=== PATIENT | male | born 1975 | race Caucasian/White ===

== ENCOUNTER 2016-10-04 17:46 | Emergency (ER) | payer MEDICAID ==
[~2016-10-04] VITALS: Ht 175.3 cm; Wt 59.0 kg
[~2016-10-04 17:46] MED LIST: none reported
[2016-10-04 18:39] VITALS: BP 126/99
== END 2016-10-04 23:50 | disposition left against medical advice (07) ==
LOC: ER 17:46
DX: Z53.21 Procedure and treatment not carried out due to patient leaving prior to being seen by health care provider (principal)

== ENCOUNTER 2017-06-03 08:31 | Emergency (ER) | payer MEDICAID ==
[~2017-06-03] VITALS: Ht 170.2 cm; Wt 68.0 kg
[2017-06-03] MEDS ORDERED: FAMOTIDINE 20MG/2ML VIAL IV STA (09:38)
[2017-06-03] MEDS ORDERED: METOCLOPRAMIDE HCL 10MG/2ML VIAL IV STA (09:38)
[2017-06-03] MEDS ORDERED: SODIUM CHLORIDE 0.9% 1,000 ML IV ONE (09:38)
[2017-06-03 10:07] LABS: BASOPHILS % 0.4 % (0.0-2.0); LYMPHOCYTES % 26.8 % (20.0-50.0); MEAN CORPUSCULAR HEMOGLOBIN 33.2 pg (28.0-32.0); MEAN CORPUSCULAR VOLUME 94.9 fL (80.0-94.0); MONOCYTES % 8.8 % (2.0-8.0); PLATELET 173 x1000/uL (130-400); RED BLOOD CELL COUNT 4.22 mill/uL (4.7-6.1); RED CELL DISTRIBUTION WIDTH 13.2 % (11.6-14.6)
[2017-06-03 10:12] LABS: CHLORIDE 87 mEq/L (98-107)
[2017-06-03 10:13] LABS: PROTHROMBIN TIME 10.4 sec (9.4-11.6)
[2017-06-03 11:08] LABS: CLARITY URINE CLEAR (CLEAR); COLOR URINE ORANGE (YELLOW); KETONES URINE 2+ (NEGATIVE); LEUKOCYTE ESTERASE URINE NEGATIVE (NEGATIVE); NITRITE URINE NEGATIVE (NEGATIVE); OCCULT BLOOD URINE TRACE (NEGATIVE); PH URINE 6.5 (4.5-8.0); PROTEIN URINE 1+ (NEGATIVE); SPECIFIC GRAVITY URINE 1.018 (1.005-1.030)
[2017-06-03] MEDS ORDERED: KETOROLAC 30MG/ML VIAL IV ONE (11:45)
[2017-06-03 12:39] VITALS: BP 116/80
== END 2017-06-03 12:39 | disposition home or self-care (01) ==
LOC: ER 09:23
DX: R11.2 Nausea with vomiting, unspecified (principal); F10.20 Alcohol dependence, uncomplicated; F17.200 Nicotine dependence, unspecified, uncomplicated
CPT/HCPCS: 36415; 80053; 81001; 83690; 85025; 85610; 96361; 96374; 96375; 99285; J1885; J2765; J3490; J7030; Z7610

== ENCOUNTER 2018-07-09 20:33 | Emergency (ER) | payer MEDICAID ==
[~2018-07-09] VITALS: Ht 167.6 cm; Wt 68.0 kg
[2018-07-09 22:47] VITALS: BP 132/89
== END 2018-07-09 23:47 | disposition home or self-care (01) ==
LOC: ER 22:57
DX: F10.129 Alcohol abuse with intoxication, unspecified (principal); Y90.9 Presence of alcohol in blood, level not specified; Z87.891 Personal history of nicotine dependence
CPT/HCPCS: 99281

== ENCOUNTER 2018-12-02 22:04 | Emergency (ER) | payer MEDICAID ==
[~2018-12-02] VITALS: Ht 165.1 cm; Wt 71.0 kg
[2018-12-02 22:44] VITALS: BP 113/82
[2018-12-02] MEDS ORDERED: SODIUM CHLORIDE 0.9% 1,000 ML IV ONE (23:23)
[2018-12-02] MEDS ORDERED: ONDANSETRON HCL 4MG/2ML INJ IV STA (23:23)
[2018-12-03 00:20] LABS: CLARITY URINE CLEAR (CLEAR); COLOR URINE YELLOW (YELLOW); KETONES URINE NEGATIVE (NEGATIVE); LEUKOCYTE ESTERASE URINE NEGATIVE (NEGATIVE); NITRITE URINE NEGATIVE (NEGATIVE); OCCULT BLOOD URINE NEGATIVE (NEGATIVE); PROTEIN URINE NEGATIVE (NEGATIVE); SPECIFIC GRAVITY URINE 1.005 (1.005-1.030); UROBILINOGEN URINE 0.2 E.U./dL (0.2-1.0)
[2018-12-03 00:52] LABS: BASOPHILS % 0.7 % (0.0-2.0); EOSINOPHILS % 0.1 % (0.0-5.0); HEMATOCRIT. 39.8 % (42.0-52.0); HEMOGLOBIN. 13.5 g/dL (14.0-18.0); LYMPHOCYTES % 32.7 % (20.0-50.0); MEAN CORPUSCULAR HEMOGLOBIN 33.6 pg (28.0-32.0); MEAN PLATELET VOLUME 8.6 fl (7.4-10.4); MONOCYTES % 3.4 % (2.0-8.0); NEUTROPHILS % 63.1 % (40.0-76.0); PLATELET 212 x1000/uL (130-400); RED BLOOD CELL COUNT 4.02 mill/uL (4.7-6.1); RED CELL DISTRIBUTION WIDTH 13.8 % (11.6-14.6)
[2018-12-03 00:58] LABS: CHLORIDE 109 mEq/L (98-107)
[2018-12-03 01:26] LABS: ETHANOL BLOOD 437 mg/dL
[2018-12-03] MEDS ORDERED: FOLIC ACID 1 MG, THIAMINE HCL 100 MG, MVI, ADULT NO.1 10 ML in DEXTROSE 5% WATER 1,000 ML IV ONE ×4 (02:15)
[2018-12-03] MEDS ORDERED: POTASSIUM CHLORIDE 20MEQ TABLET SR PO ONE (02:15)
[2018-12-03 09:06] LABS: *AMPHETAMINES SCREEN URINE NEGATIVE (NEGATIVE); *BARBITURATES SCREEN URINE NEGATIVE (NEGATIVE); *BENZODIAZEPINES SCREEN URINE NEGATIVE (NEGATIVE); *COCAINE SCREEN URINE NEGATIVE (NEGATIVE); CANNABINOID URINE SCREEN NEGATIVE (NEGATIVE); METHADONE URINE SCREEN NEGATIVE (NEGATIVE); OPIATES URINE SCREEN NEGATIVE (NEGATIVE); PHENCYCLIDINE URINE SCREEN NEGATIVE (NEGATIVE)
== END 2018-12-03 04:11 | disposition home or self-care (01) ==
LOC: ER 22:04
DX: R41.82 Altered mental status, unspecified (principal); F10.129 Alcohol abuse with intoxication, unspecified; Y90.9 Presence of alcohol in blood, level not specified
CPT/HCPCS: 36415; 80053; 80305; 80307; 80320; 80329; 81003; 82140; 85025; 96361; 96374; 99283; J2405; J3411; J3490; J7030; J7070; G0480

== ENCOUNTER 2018-12-08 22:39 | Emergency (ER) | payer MEDICAID ==
[~2018-12-08] VITALS: Ht 175.3 cm; Wt 77.0 kg
[2018-12-09 00:02] LABS: BASOPHILS % 0.2 % (0.0-2.0); EOSINOPHILS % 0.1 % (0.0-5.0); HEMATOCRIT. 38.2 % (42.0-52.0); HEMOGLOBIN. 13.2 g/dL (14.0-18.0); LYMPHOCYTES % 14.2 % (20.0-50.0); MEAN CORPUSCULAR HEMOGLOBIN 33.9 pg (28.0-32.0); MEAN CORPUSCULAR VOLUME 97.9 fL (80.0-94.0); MEAN PLATELET VOLUME 9.7 fl (7.4-10.4); MONOCYTES % 8.1 % (2.0-8.0); NEUTROPHILS % 77.4 % (40.0-76.0); PLATELET 148 x1000/uL (130-400); RED CELL DISTRIBUTION WIDTH 13.6 % (11.6-14.6)
[2018-12-09 00:03] LABS: CHLORIDE 96 mEq/L (98-107)
[2018-12-09 00:07] LABS: ETHANOL BLOOD < 10 mg/dL
[2018-12-09 00:49] LABS: *AMPHETAMINES SCREEN URINE NEGATIVE (NEGATIVE); *BARBITURATES SCREEN URINE NEGATIVE (NEGATIVE); CANNABINOID URINE SCREEN NEGATIVE (NEGATIVE)
[2018-12-09 00:50] LABS: *BENZODIAZEPINES SCREEN URINE NEGATIVE (NEGATIVE); *COCAINE SCREEN URINE NEGATIVE (NEGATIVE); METHADONE URINE SCREEN NEGATIVE (NEGATIVE); OPIATES URINE SCREEN NEGATIVE (NEGATIVE)
[2018-12-09 00:51] LABS: PHENCYCLIDINE URINE SCREEN NEGATIVE (NEGATIVE)
[2018-12-09 01:44] VITALS: BP 116/83
== END 2018-12-09 01:46 | disposition home or self-care (01) ==
LOC: ER 22:39
DX: E11.649 Type 2 diabetes mellitus with hypoglycemia without coma (principal)
CPT/HCPCS: 36415; 80305; 80320; 82962; 83880; 84484; 93005; 99284; G0480

== ENCOUNTER 2019-02-20 08:51 | Inpatient (IN) | payer MEDICAID, OTHER ==
[~2019-02-20] VITALS: Ht 175.3 cm; Wt 72.6 kg
[2019-02-20] MEDS ORDERED: FOLIC ACID 1 MG, THIAMINE HCL 100 MG, MVI, ADULT NO.1 10 ML in DEXTROSE 5% WATER 1,000 ML IV ONE ×4 (09:15)
[2019-02-20 09:22] LABS: EOSINOPHILS % 1.6 % (0.0-5.0); HEMATOCRIT. 32.3 % (42.0-52.0); LYMPHOCYTES % 34.9 % (20.0-50.0); MEAN CORPUSCULAR HEMOGLOBIN 34.3 pg (28.0-32.0); MEAN CORPUSCULAR VOLUME 100.6 fL (80.0-94.0); MEAN PLATELET VOLUME 9.6 fl (7.4-10.4); MONOCYTES % 7.7 % (2.0-8.0); NEUTROPHILS % 54.8 % (40.0-76.0); PLATELET 119 x1000/uL (130-400); RED BLOOD CELL COUNT 3.21 mill/uL (4.7-6.1); RED CELL DISTRIBUTION WIDTH 13.9 % (11.6-14.6)
[2019-02-20 09:27] LABS: CHLORIDE 106 mEq/L (98-107)
[2019-02-20 09:28] LABS: INR 1.1; PROTHROMBIN TIME 10.8 sec (9.6-11.0)
[2019-02-20 09:33] LABS: ETHANOL BLOOD < 10 mg/dL
[2019-02-20 09:37] LABS: CREATINE KINASE 85 IU/L (39-308)
[2019-02-20] MEDS ORDERED: LEVETIRACETAM 1000MG/100ML 100 ML IV ONE (10:45)
[2019-02-20] MEDS ORDERED: CHLORDIAZEPOXIDE 5 MG CAPSULE PO ONE (10:45)
[2019-02-20 10:54] LABS: CLARITY URINE CLEAR (CLEAR); COLOR URINE YELLOW (YELLOW); KETONES URINE NEGATIVE (NEGATIVE); LEUKOCYTE ESTERASE URINE NEGATIVE (NEGATIVE); NITRITE URINE NEGATIVE (NEGATIVE); OCCULT BLOOD URINE NEGATIVE (NEGATIVE); PROTEIN URINE NEGATIVE (NEGATIVE); SPECIFIC GRAVITY URINE 1.017 (1.005-1.030)
[2019-02-20 11:17] LABS: *AMPHETAMINES SCREEN URINE NEGATIVE (NEGATIVE); *BARBITURATES SCREEN URINE NEGATIVE (NEGATIVE); *BENZODIAZEPINES SCREEN URINE NEGATIVE (NEGATIVE); *COCAINE SCREEN URINE NEGATIVE (NEGATIVE)
[2019-02-20 11:18] LABS: CANNABINOID URINE SCREEN NEGATIVE (NEGATIVE); METHADONE URINE SCREEN NEGATIVE (NEGATIVE); OPIATES URINE SCREEN NEGATIVE (NEGATIVE); PHENCYCLIDINE URINE SCREEN NEGATIVE (NEGATIVE)
[2019-02-20] MEDS ORDERED: ACETAMINOPHEN 325MG TABLET PO PRN (14:00)
[2019-02-20] MEDS ORDERED: IPRATROPIUM/ALBUTEROL 0.5-3(2.5)MG/3ML NEB NEB PRN (14:00)
[2019-02-20] MEDS ORDERED: DOCUSATE SODIUM 100MG CAPSULE PO PRN (14:00)
[2019-02-20] MEDS ORDERED: ONDANSETRON HCL 4MG/2ML INJ IV PRN (14:00)
[2019-02-20] MEDS ORDERED: LORAZEPAM 2MG/ML CPJ IV PRN (14:00)
[2019-02-20] MEDS ORDERED: CLONIDINE 0.1MG TABLET PO PRN (14:00)
[2019-02-20] MEDS ORDERED: MAGNESIUM/ALUMINUM HYDROXIDE/SIMETHICONE 30ML UDC PO PRN (14:00)
[2019-02-20] MEDS ORDERED: GUAIFENESIN 200MG/10ML SUGAR FREE UDC PO PRN (14:00)
[2019-02-20] MEDS ORDERED: ZOLPIDEM TARTRATE 5MG TABLET PO PRN (14:00)
[2019-02-20] MEDS ORDERED: KETOROLAC 15MG/ML VIAL IV PRN (14:00)
[2019-02-20 15:00] VITALS: BP 113/71
[2019-02-20] MEDS ORDERED: DEXTROSE 50% WATER 50ML SYRINGE IV PRN (15:45)
[2019-02-20] MEDS ORDERED: FOLI0.4T2 MT (17:00)
[2019-02-20] MEDS ORDERED: LISI10TA5 PO (17:01)
[2019-02-20] MEDS: INSULIN LISPRO 100 UNITS/ML SUBCUT SCH ×2 (17:15→21:00)
[2019-02-20] MEDS: BLOOD SUGAR DIAGNOSTIC STRIP TEST SCH ×2 (17:35→21:00)
[2019-02-20] MEDS: ENOXAPARIN 40MG/0.4ML SYR SUBCUT SCH (17:44)
[2019-02-20 20:00] VITALS: BP 118/72
[2019-02-20] MEDS: FAMOTIDINE 20MG TABLET PO SCH (21:16)
[2019-02-20] MEDS: CHLORDIAZEPOXIDE 5 MG CAPSULE PO SCH (21:40)
[2019-02-20] MEDS ORDERED: CHLORDIAZEPOXIDE 25MG CAPSULE PO SCH (22:00)
[2019-02-21] VITALS: BP 109/70
[2019-02-21 04:00] VITALS: BP 108/74
[2019-02-21] MEDS: CHLORDIAZEPOXIDE 5 MG CAPSULE PO SCH ×2 (06:05→14:00)
[2019-02-21] MEDS: BLOOD SUGAR DIAGNOSTIC STRIP TEST SCH ×2 (06:12→12:00)
[2019-02-21] MEDS: INSULIN LISPRO 100 UNITS/ML SUBCUT SCH ×2 (06:16→12:00)
[2019-02-21 08:00] VITALS: BP 110/77
[2019-02-21] MEDS: ENOXAPARIN 40MG/0.4ML SYR SUBCUT SCH (08:30)
[2019-02-21] MEDS: FAMOTIDINE 20MG TABLET PO SCH (08:31)
[2019-02-21] MEDS ORDERED: MVI, ADULT NO.1 10 ML, FOLIC ACID 1 MG, THIAMINE HCL 100 MG in SODIUM CHLORIDE 0.9% 1,0... IV SCH ×4 (09:00)
[2019-02-21 12:00] VITALS: BP 110/68
[2019-02-21 13:05] VITALS: BP 110/68
[2019-02-21 16:00] VITALS: BP 104/54
== END 2019-02-21 18:00 | disposition home or self-care (01) | DRG 775 ==
LOC: ER 08:51 → 5WST 11:07 → EDBEDREQTM 11:16 → EDBEDREQ 11:16 → ENRESERV 13:19 → CANRESERV 13:38 → ENRESERV 13:38
PROVIDERS: ADMIT Internal Medicine; ATTEND Internal Medicine
DX: F10.239 Alcohol dependence with withdrawal, unspecified (principal); D61.818 Other pancytopenia; R56.9 Unspecified convulsions; E44.1 Mild protein-calorie malnutrition; E11.9 Type 2 diabetes mellitus without complications; I10 Essential (primary) hypertension; R74.0 Nonspecific elevation of levels of transaminase and lactic acid dehydrogenase [LDH]; Z68.23 Body mass index [BMI] 23.0-23.9, adult
CPT/HCPCS: 36415; 71045; 80305; 80320; 81003; 82140; 82550; 82962; 83036; 83880; 84484; 93005; 93970; 96365; 99285; J1650; J1953; J3411; J3490; J7030; J7070; G0480

== ENCOUNTER 2019-06-23 11:00 | Emergency (ER) | payer MEDICAID ==
[~2019-06-23] VITALS: Ht 165.1 cm; Wt 65.0 kg
[~2019-06-23 11:00] MED LIST changes: +FOLI0.4T2 MT; +LISI10TA5 PO; -none reported
[2019-06-23] MEDS ORDERED: IBUPROFEN 800MG TABLET PO ONE (12:15)
[2019-06-23 14:07] VITALS: BP 105/55
== END 2019-06-23 14:09 | disposition home or self-care (01) ==
LOC: ER 12:26
DX: S05.11XA Contusion of eyeball and orbital tissues, right eye, initial encounter (principal); R51 Headache; G89.11 Acute pain due to trauma; I10 Essential (primary) hypertension; E11.9 Type 2 diabetes mellitus without complications; Y04.2XXA Assault by strike against or bumped into by another person, initial encounter; Y93.89 Activity, other specified; Y92.89 Other specified places as the place of occurrence of the external cause
CPT/HCPCS: 70486; 99284

== ENCOUNTER 2019-12-08 22:54 | Emergency (ER) | payer MEDICAID ==
[~2019-12-08] VITALS: Ht 165.1 cm; Wt 73.0 kg
[2019-12-08] MEDS ORDERED: SODIUM CHLORIDE 0.9% 1,000 ML IV ONE (23:21)
[2019-12-08] MEDS ORDERED: ONDANSETRON HCL 4MG/2ML INJ IV ONE (23:30)
[2019-12-08 23:58] LABS: BASOPHILS % 0.7 % (0.0-2.0); HEMATOCRIT. 46.6 % (42.0-52.0); MEAN CORPUSCULAR HEMOGLOBIN 33.5 pg (28.0-32.0); MEAN CORPUSCULAR VOLUME 97.8 fL (80.0-94.0); MEAN PLATELET VOLUME 10.2 fl (7.4-10.4); MONOCYTES % 6.1 % (2.0-8.0); NEUTROPHILS % 51.2 % (40.0-76.0); PLATELET 151 x1000/uL (130-400); RED BLOOD CELL COUNT 4.77 mill/uL (4.7-6.1); RED CELL DISTRIBUTION WIDTH 13.9 % (11.6-14.6)
[2019-12-09 00:02] LABS: CHLORIDE 98 mEq/L (98-107)
[2019-12-09 00:15] LABS: ETHANOL BLOOD 523 mg/dL
[2019-12-09] MEDS ORDERED: LORAZEPAM 2MG/ML CPJ IV ONE ×2 (00:15→01:45)
[2019-12-09] MEDS ORDERED: POTASSIUM CHLORIDE 20MEQ TABLET SR PO ONE (00:15)
[2019-12-09] MEDS ORDERED: KCL 10MEQ/50ML PREMIX 50 ML IV ONE (00:45)
[2019-12-09] MEDS ORDERED: ONDANSETRON HCL 4MG/2ML INJ IV ONE (00:45)
[2019-12-09 02:41] VITALS: BP 115/78
== END 2019-12-09 02:46 | disposition home or self-care (01) ==
LOC: ER 22:54
DX: F10.129 Alcohol abuse with intoxication, unspecified (principal); Y90.8 Blood alcohol level of 240 mg/100 ml or more; R11.0 Nausea; E11.9 Type 2 diabetes mellitus without complications; I10 Essential (primary) hypertension
CPT/HCPCS: 36415; 80053; 80320; 85025; 96361; 96374; 96375; 96376; 99284; J2060; J2405; J3480; J7030; G0480

== ENCOUNTER 2021-04-02 07:05 | Emergency (ER) | payer MEDICAID ==
[~2021-04-02] VITALS: Ht 177.8 cm; Wt 68.0 kg
[~2021-04-02 07:05] MED LIST changes: -FOLI0.4T2 MT; +FOLI0.4T6 MT; +LISI10TA26 PO; -LISI10TA5 PO
[2021-04-02] MEDS ORDERED: SODIUM CHLORIDE 0.9% 1,000 ML IV ONE (07:15)
[2021-04-02 08:40] LABS: BASOPHILS % 1.2 % (0.0-2.0); EOSINOPHILS % 0.5 % (0.0-5.0); HEMATOCRIT. 36.7 % (42.0-52.0); HEMOGLOBIN. 12.4 g/dL (14.0-18.0); LYMPHOCYTES % 22.9 % (20.0-50.0); MEAN CORPUSCULAR HEMOGLOBIN 33.6 pg (28.0-32.0); MEAN CORPUSCULAR VOLUME 99.4 fL (80.0-94.0); MEAN PLATELET VOLUME 9.5 fl (7.4-10.4); NEUTROPHILS % 62.4 % (40.0-76.0); PLATELET 131 x1000/uL (130-400); RED BLOOD CELL COUNT 3.69 mill/uL (4.7-6.1); RED CELL DISTRIBUTION WIDTH 13.5 % (11.6-14.6)
[2021-04-02 08:45] LABS: CHLORIDE 107 mEq/L (98-107)
[2021-04-02 08:49] LABS: ETHANOL BLOOD < 10 mg/dL
[2021-04-02 08:55] LABS: CLARITY URINE CLEAR (CLEAR); COLOR URINE DARK YELLOW (YELLOW); KETONES URINE TRACE (NEGATIVE); LEUKOCYTE ESTERASE URINE NEGATIVE (NEGATIVE); NITRITE URINE NEGATIVE (NEGATIVE); OCCULT BLOOD URINE NEGATIVE (NEGATIVE); PROTEIN URINE NEGATIVE (NEGATIVE); UROBILINOGEN URINE 0.2 E.U./dL (0.2-1.0)
[2021-04-02 09:23] LABS: METHADONE URINE SCREEN NEGATIVE (NEGATIVE)
[2021-04-02 09:24] LABS: *AMPHETAMINES SCREEN URINE NEGATIVE (NEGATIVE); *BARBITURATES SCREEN URINE NEGATIVE (NEGATIVE); *BENZODIAZEPINES SCREEN URINE NEGATIVE (NEGATIVE); *COCAINE SCREEN URINE NEGATIVE (NEGATIVE); CANNABINOID URINE SCREEN NEGATIVE (NEGATIVE); OPIATES URINE SCREEN NEGATIVE (NEGATIVE); PHENCYCLIDINE URINE SCREEN NEGATIVE (NEGATIVE)
[2021-04-02] MEDS ORDERED: POTASSIUM CHLORIDE 20MEQ TABLET SR PO ONE (09:30)
[2021-04-02 11:03] VITALS: BP 125/65
== END 2021-04-02 11:04 | disposition home or self-care (01) ==
LOC: ER 07:05
DX: R53.1 Weakness (principal); E87.6 Hypokalemia; R94.5 Abnormal results of liver function studies; I10 Essential (primary) hypertension; E11.9 Type 2 diabetes mellitus without complications
CPT/HCPCS: 36415; 80053; 80305; 80320; 81003; 82962; 85025; 93005; 96360; 96361; 99284; J7030; G0480

== ENCOUNTER 2024-12-27 13:18 | Emergency (ER) | payer MEDICAID ==
[~2024-12-27] VITALS: Ht 175.3 cm; Wt 66.0 kg
[2024-12-27 13:29] VITALS: O2SAT 99
[2024-12-27] MEDS: KETOROLAC 30MG/ML VIAL IM ONE (15:38)
[2024-12-27] MEDS ORDERED: IBUP-2028 MT (16:18)
[2024-12-27] MEDS ORDERED: ACET-2708 MT (16:18)
[2024-12-27] MEDS: HYDROCODONE/ACETAMINOPHEN 5/325MG TABLET PO ONE (16:57)
[2024-12-27 17:44] VITALS: BP 130/76; PULSE 97; RESP 16; TEMP 37; O2SAT 99
== END 2024-12-27 17:45 | disposition home or self-care (01) ==
LOC: ER 13:18
DX: S82.209A Unspecified fracture of shaft of unspecified tibia, initial encounter for closed fracture (principal); I10 Essential (primary) hypertension; E11.9 Type 2 diabetes mellitus without complications; Z79.899 Other long term (current) drug therapy; W18.30XA Fall on same level, unspecified, initial encounter; Y93.89 Activity, other specified; Y92.89 Other specified places as the place of occurrence of the external cause; Y99.8 Other external cause status
CPT/HCPCS: 99285; 70450; 29515; 73610; 73620; 72125; 96372; J1885; A6449